=== PATIENT | female | born 1960 | race Caucasian/White ===

== ENCOUNTER 2018-06-30 16:16 | Emergency (ER) | payer MEDICARE, MEDICAID ==
[~2018-06-30] VITALS: Ht 160 cm; Wt 68.9 kg
[2018-06-30] MEDS ORDERED: ACETAMINOPHEN ES 500 MG TABLET ONE (16:23)
[2018-06-30] MEDS ORDERED: IBUPROFEN 600 MG TABLET ONE (16:23)
[2018-06-30] MEDS ORDERED: IBUPROFEN 600 MG TABLET PO ONE (16:30)
[2018-06-30] MEDS ORDERED: ACETAMINOPHEN ES 500 MG TABLET PO ONE (16:30)
[2018-06-30] MEDS ORDERED: OXCA600T5 PO (16:34)
[2018-06-30] MEDS ORDERED: QUET100T PO (16:34)
[2018-06-30] MEDS ORDERED: BUSP10TA3 PO (16:34)
[2018-06-30] MEDS ORDERED: LEVO112T5 PO (16:34)
[2018-06-30] MEDS ORDERED: BREX0.5T PO (16:34)
[2018-06-30] MEDS ORDERED: ATOR20TA PO (16:34)
[2018-06-30] MEDS ORDERED: CLON1TAB PO (16:34)
[2018-06-30] MEDS ORDERED: DULO30CA2 PO (16:34)
--- NOTE | 2018-06-30 17:19 | NUR ---
lapd here to talk to the pt.
--- NOTE | 2018-06-30 18:35 | NUR ---
Patient discharged to home in stable conditon. Written and verbal after care instructions given. Patient verbalizes understanding of instructions.pt walks in steady gait. pt accompanied by family member.
[2018-06-30 18:36] VITALS: BP 119/79
== END 2018-06-30 18:38 | disposition home or self-care (01) ==
LOC: ER 16:16
DX: R51 Headache (principal); M54.2 Cervicalgia; M79.601 Pain in right arm; M79.661 Pain in right lower leg; E03.9 Hypothyroidism, unspecified; E78.5 Hyperlipidemia, unspecified; Z79.899 Other long term (current) drug therapy; Y93.89 Activity, other specified; Y92.410 Unspecified street and highway as the place of occurrence of the external cause; Y99.8 Other external cause status
CPT/HCPCS: 70450; 72125; 73080; 73610; A4663; A9150